=== PATIENT | female | born 1940 | race Caucasian/White ===

== ENCOUNTER 2020-08-14 10:32 | Outpatient (CLI) | payer MEDICARE, SELFPAY ==
--- NOTE | ~2020-08-14 | XR_ITS ---
XR abdomen/kub 1V 08/14/2020 10:59 Indication: Specified abdominal pain. Diarrhea. Procedure: KUB Comparison: No prior studies Findings: Bowel gas pattern is nonobstructive. There are pelvic phleboliths. Levoscoliosis. Lung base s unremarkable. No renal/ureteral stones are identified.. Impression: 1: No acute abdominal abnormality. Reviewed, dictated and finalized at location B. ITIONING COACH Impression: 1: No acute abdominal abnormality.
--- NOTE | ~2020-08-14 | XR_ITS ---
XR lumbar spine min 4V 08/14/2020 10:59 Indication: Low back pain Procedure: 5 views of the lumbar spine Comparison: No prior studies for comparison. Findings: Mild levoscoliosis centered at L1. Mild superior endplate compression deformity of L1, like ly chronic. There is disc narrowing at all lumbar levels. There is moderate multilevel facet hypertro phy. No acute fracture or traumatic malalignment. No evidence for spondylolisthesis. Impression: 1: Moderate lumbar spondylosis with levoscoliosis. 2: Mild superior endplate compression deformity of L1, likely chronic. Reviewed, dictated and finalized at location B. E OPERATOR Impression: 1: Moderate lumbar spondylosis with levoscoliosis. 2: Mild superior endplate compression deformity of L1, likely chronic.
== END 2020-08-14 10:33 | disposition home or self-care (01) ==
PROVIDERS: PCP Family Medicine; Visit Provider Family Medicine
DX: R10.9 Unspecified abdominal pain (principal); C50.919 Malignant neoplasm of unspecified site of unspecified female breast; M41.9 Scoliosis, unspecified; M54.5 Low back pain; R19.7 Diarrhea, unspecified
CPT/HCPCS: 72110; 74018

== ENCOUNTER 2020-12-18 08:56 | Emergency (ER) | payer MEDICARE, SELFPAY ==
--- NOTE | ~2020-12-18 | CT_ITS ---
EXAMINATION: CTA chest PE abdomen pel DATE: 12/18/2020 10:19 INDICATION: Generalized chest pain. Right flank pain. Liver biopsy 3 days ago. TECHNIQUE: Computed tomography angiography (CTA) of the chest was performed with 100 mL Omnipaque-350 intravenous contrast timed to evaluate the pulmonary arteries. Coronal maximum intensity projection 3D-reconstructions were created by the technologist. Computed tomography (CT) of the abdomen and pelv is was performed with intravenous contrast. Automated exposure control and iterative reconstruction t echnique were employed. The dose-length product was 327.93 mGy-cm. COMPARISON: CT abdomen and pelvis 10/28/2011, lumbar spine radiographs 08/14/2020 FINDINGS: CTA chest: There is mild scarring at the lung apices. There is minimal atelectasis bilaterally. No pl eural effusion. Cardiomegaly is noted. There are coronary artery calcifications. No pericardial effus ion. There is no pulmonary embolus. There are no pathologically enlarged lymph nodes. There are numer ous scattered mixed sclerotic and lytic lesions of bone. There are multiple healing pathologic right rib fractures. There are mild pathologic compression fractures of T7 and T12 of uncertain age. CT abdomen and pelvis: There are greater than 20 scattered masses in the liver measuring up to 2.9 x 2.2 cm. The gallbladder, spleen, pancreas, adrenal glands, and kidneys are normal. There is a left in guinal hernia containing fat. The appendix is not visualized. There are no dilated loops of bowel. Th ere are no pathologically enlarged lymph nodes. There are widespread mixed lytic and sclerotic lesion s of bone. There is a burst fracture of L1 with 2/5 loss of height and retropulsion of bone 4 mm into central spinal canal, worsened from 08/14/2020. IMPRESSION: 1. Liver masses and bone lesions, consistent with metastatic disease, most likely metastatic breast c ancer. Correlate with outside biopsy results. 2. No visualized complication from the recent liver biopsy. 3. No pulmonary embolus. Reviewed, dictated and finalized at location A. IMPRESSION: 1. Liver masses and bone lesions, consistent with metastatic disease, most like ly metastatic breast cancer. Correlate with outside biopsy results. 2. No visualized complication from the recent liver biopsy. 3. No pulmonary embolus.
--- NOTE | ~2020-12-18 | XR_ITS ---
EXAMINATION: XR chest 2V EXAM DATE: 12/18/2020 09:54 INDICATION: Right lower rib pain at liver biopsy site. TECHNIQUE: Frontal and lateral projections of the chest obtained and reviewed. Comparison is made to prior examination from 07/13/2018. FINDINGS: Moderate chronic hyperinflation. There is cardiomegaly. No confluent consolidation, pneumo thorax or pleural effusion suspected. Mild to moderate thoracolumbar levoscoliosis. Bones appear oste openic. There is no significant interval change. IMPRESSION: 1. No acute cardiac pulmonary findings. 2. Cardiomegaly. 3. Hyperinflation. Reviewed, dictated and finalized at location A.
[2020-12-18 09:15] VITALS: BP 108/59; PULSE 100; RESP 17; TEMP 37.1; O2SAT 98
--- NOTE | 2020-12-18 09:27 | ED.GENADULT ---
HPI - General Adult General Chief complaint: Abdominal Pain Stated complaint: flank pain following liver biopsy Time Seen by Provider: 12/18/20 09:03 Source: patient Mode of arrival: ambulatory Limitations: no limitations History of Present Illness HPI narrative: Patient is an 80 year old female with history of breast cancer who presents for evaluation of right flank pain s/p liver biopsy. She had a liver biopsy performed on Monday at [facility] . She states she developed right flank pain yesterday. She has pain with movement, and she denies pain now. She denies shortness of breath, nausea, vomiting or fever. She denies urinary complaints. She has been found to have mets in her liver and bone so they are evaluated the source. Related Data Allergies Allergy/AdvReac Type Severity Reaction Status Date / Time No Known Allergies Allergy Verified 12/03/20 13:27 Review of Systems Review of Systems: All systems reviewed & are unremarkable except as noted in HPI and below PMFSH Past Medical History Medical History Breast CA Essential tremor Osteopenia after menopause Supraventricular arrhythmia Use of anastrozole (Arimidex) Surgical History Surgical History History of mastectomy, total L Family History Family History Mother Hypertension Father Malignant neoplasm of prostate Sibling Family history of malignant neoplasm of thyroid Social History Social History (Updated 12/03/20 @ 13:30 by Kiersten Hightower CMA) Social History: Smoking status: Never smoker Second hand tobacco smoke exposure: No Alcohol intake: current Substance use: never Substance use type: does not use Gender identity (if verbalized by the patient): Female Exam Const: General: alert Nutritional Appearance: thin Orientation/consciousness: patient oriented x3 Resp: Effort & Inspection: normal respiratory effort and no retractions Auscultation: clear to auscultation bilaterally Cardio: Rate: regular rate Rhythm: regular rhythm Heart sounds: no murmurs GI: GI Palp: Yes Soft to palpation, No Tenderness to palpation present (GI), No Guarding due to palpation present (GI) and No Rigid due to palpation Auscultation: normal bowel sounds Skin: Other: right flank with small bandage, no swelling, no erythema, there is small about of bruising at puncture site. Neuro: General: patient oriented x3 and moves all extremities Course Reevaluation(s) Reevaluation #1: I discussed with patient and her son that labs were unremarkable other than anemia. No sign of complications of the biopsy. She does have multiple rib fractures from her cancer. They are aware. They have a follow up appointment in 1 week. Date: 12/18/20 Time: 11:43 Vital Signs Vital signs: Vital Signs Temperature 98.7 F 12/18/20 09:15 Pulse Rate 100 12/18/20 09:15 Respiratory Rate 17 12/18/20 09:15 Blood Pressure 108/59 L 12/18/20 09:15 Pulse Oximetry 98 12/18/20 09:15 Temperature 98.7 F 12/18/20 09:15 Pulse Rate 81 12/18/20 12:30 Respiratory Rate 16 12/18/20 12:30 Blood Pressure 134/65 12/18/20 12:30 Pulse Oximetry 100 12/18/20 12:30 Medical Decision Making Vital Signs Vital Signs: Vital Signs Temperature 98.7 F 12/18/20 09:15 Pulse Rate 100 12/18/20 09:15 Respiratory Rate 17 12/18/20 09:15 Blood Pressure 108/59 L 12/18/20 09:15 Pulse Oximetry 98 12/18/20 09:15 Temperature 98.7 F 12/18/20 09:15 Pulse Rate 81 12/18/20 12:30 Respiratory Rate 16 12/18/20 12:30 Blood Pressure 134/65 12/18/20 12:30 Pulse Oximetry 100 12/18/20 12:30 Lab Data Lab results reviewed: Yes I reviewed the patient's lab results. Result diagrams: 12/18/20 09:28 12/18/20 09:28 Labs: Lab
[2020-12-18 09:35] LABS: Basophils Percent Auto 0.8 % (0.2-1.2); Eosinophils Absolute Auto 0.4 K/mm3 (0-0.3); Hematocrit 31.6 % (37.0-47.0); Immature Granulocyte Absolute 0.04 K/mm3 (0.00-0.031); Immature Granulocyte Percent A 0.8 % (0-0.5); Lymphocytes Percent Auto 10.4 % (18.3-44.2); Mean Corpuscular HGB Conc 31.6 g/dl (32-36); Mean Corpuscular Hemoglobin 27.5 pg (26-34); Mean Corpuscular Volume 87.1 fl (80-100); Mean Platelet Volume 9.3 fl (7.4-10.4); Monocytes Absolute Auto 0.4 K/mm3 (0.1-0.6); Monocytes Percent Auto 9.2 % (2.6-8.5); Neutrophils Absolute Auto 3.3 K/mm3 (1.3-6.7); Neutrophils Percent Auto 69.8 % (45.5-73.1); Platelet Count Result 324 k/mm3 (150-375); Red Blood Count 3.63 M/mm3 (4.2-5.4); Red Cell Distribution Width 14.4 % (11.5-14.5); White Blood Count 4.8 K/mm3 (4.5-10.0)
--- NOTE | 2020-12-18 09:45 | PC.NURSE ---
Pt unable to void, agreeable to a straight cath for urine sample. Order placed. Pt to XRAY at this time.
[2020-12-18 09:52] LABS: Alanine Aminotransferase 13 U/L (4-35); Albumin Level 3.7 g/dL (3.5-5.1); Alkaline Phosphatase 124 U/L (38-126); Anion Gap 5 mmol/L (8-16); Aspartate Amino Transferase 28 U/L (14-36); Bilirubin,Total 0.4 mg/dL (0.2-1.3); Blood Urea Nitrogen 14 mg/dL (7-17); Calcium 8.9 mg/dL (8.4-10.2); Carbon Dioxide 26 mmol/L (22-30); Chloride 105 mmol/L (98-107); Estimated CRCL calculation 60 ml/min; Estimated Glomerular Filt Rate > 60; Glucose 119 mg/dL (65-105); Lipase 80 U/L (23-300); Potassium 4.1 mmol/L (3.4-5.0); Sodium 136 mmol/L (137-145)
[2020-12-18 09:58] LABS: INR 0.9; Prothrombin Time 12.8 Seconds (11.1-14.7)
[2020-12-18 09:59] LABS: Partial Thromboplastin Time 35.4 SECONDS (22.3-36.8)
[2020-12-18 10:41] VITALS: BP 147/59; PULSE 94; RESP 18; O2SAT 100
[2020-12-18 11:20] LABS: Add Urine Microscopic? NO; Appearance Urine Clear (Clear); Bilirubin Urine Negative (Negative); Blood Urine Negative (Negative); Color Urine Straw (Yellow); Glucose Urine UA Negative (Negative); Ketones Urine Negative (Negative); Leukocyte Esterase Ur Negative LEU/UL (Negative); Nitrate Urine Negative (Negative); Protein Urine Negative (Negative); Urobilinogen Urine Negative mg/dL (<2.0)
[2020-12-18 12:30] VITALS: BP 134/65; PULSE 81; RESP 16; O2SAT 100
== END 2020-12-18 12:32 | disposition home or self-care (01) ==
PROVIDERS: Emergency Provider General Practice; PCP Family Medicine
DX: R10.9 Unspecified abdominal pain (principal); C79.51 Secondary malignant neoplasm of bone; C78.7 Secondary malignant neoplasm of liver and intrahepatic bile duct; Z85.3 Personal history of malignant neoplasm of breast; M84.58XD Pathological fracture in neoplastic disease, other specified site, subsequent encounter for fracture with routine healing; M85.80 Other specified disorders of bone density and structure, unspecified site; Z90.12 Acquired absence of left breast and nipple; I51.7 Cardiomegaly
CPT/HCPCS: 36415; 51701; 71046; 71275; 74177; 80053; 81003; 83690; 85025; 85610; 85730; 99284; Q9967

== ENCOUNTER 2022-02-04 12:19 | Outpatient (CLI) | payer MEDICARE, SELFPAY ==
[2022-02-04 15:29] LABS: Color Urine Yellow (Yellow)
[2022-02-04 15:30] LABS: Appearance Urine Clear (Clear)
[2022-02-04 15:31] LABS: Add Urine Microscopic? YES; Bilirubin Urine Negative (Negative); Blood Urine Negative (Negative); Glucose Urine UA Negative (Negative); Ketones Urine Negative (Negative); Leukocyte Esterase Ur Trace LEU/UL (Negative); Nitrate Urine Negative (Negative); Protein Urine Negative (Negative); Urobilinogen Urine 0.2 mg/dL (<2.0)
[2022-02-04 15:33] LABS: Bacteria Urine Trace /hpf; Mucus Urine Rare /lpf; RBC Urine 0-2 /hpf (0-2); Squamous Epithelial Cell Urine Rare /hpf (Few)
== END 2022-02-04 12:20 | disposition home or self-care (01) ==
LOC: ANHLAB 12:21
PROVIDERS: PCP Family Medicine; Visit Provider Nurse Practitioner Gerontology
DX: R30.0 Dysuria (principal)
CPT/HCPCS: 81001; 87086

== ENCOUNTER 2022-02-22 11:16 | Emergency (ER) | payer MEDICARE, SELFPAY ==
--- NOTE | ~2022-02-22 | CT_ITS ---
EXAMINATION: CT abdomen pelvis wo con DATE: 02/22/2022 12:48 INDICATION: Right upper quadrant abdominal pain TECHNIQUE: Computed tomography (CT) of the abdomen and pelvis was performed without intravenous contr ast. Automated exposure control and iterative reconstruction technique were employed. The dose-length product was 188.97 mGy-cm. COMPARISON: None FINDINGS: Mild bronchiectatic changes in mild atelectasis at the bilateral lower lobes. Cardiomegaly. No perica rdial or pleural effusion. Multiple hypodense masses scattered throughout the liver consistent with m etastatic disease. This appears to have progressed since the prior study although more thousand and d irect quantitative comparison is difficult in that the current study is performed without contrast as opposed to the prior postcontrast study and which the masses are significantly more conspicuous with clearly defined margins. Gallbladder, spleen, pancreas, left kidney and bilateral adrenal glands are normal. Right kidney is somewhat horizontally oriented and more caudally positioned than typical but appears otherwise normal. Bladder, uterus and bilateral adnexa are unremarkable. Bowels are unremark able with no obstruction. No free intraperitoneal gas or fluid. No pathologically enlarged abdominal or pelvic lymphadenopathy. There is been some interval progression in widespread lytic and sclerotic be bone disease throughout the visualized ribs, spine and pelvis. The progression is most clearly justen dent in the spine, particularly at L3. These statistically this L3. L3. Chronic the pathologic pain T 11 compression fracture and L1 burst fracture. IMPRESSION: 1. Interval progression of multiple hepatic masses and widespread lytic and sclerotic bone lesions co nsistent with progression of metastatic disease. 2. Cardiomegaly. 3. No acute intra-abdominal/pelvic process. Reviewed, dictated and finalized at location A. IMPRESSION: 1. Interval progression of multiple hepatic masses and widespread lytic and scl erotic bone lesions consistent with progression of metastatic disease. 2. Cardiomegaly. 3. No acute intra-abdominal/pelvic process.
[2022-02-22 11:52] VITALS: BP 107/86; PULSE 105; RESP 16; TEMP 37.5; O2SAT 98
[2022-02-22 12:08] VITALS: BP 97/54; PULSE 94; RESP 20; TEMP 37.6; O2SAT 100
--- NOTE | 2022-02-22 12:08 | PC.NURSE ---
pt unable to void at the moment.
--- NOTE | 2022-02-22 12:20 | ED.ABDPAIN ---
HPI - Abdominal Pain General Chief Complaint: Abdominal Pain Stated Complaint: ruq pain Time Seen by Provider: 02/22/22 12:03 History of Present Illness HPI narrative: Pt presents with pain in her RUQ since yesterday evening. Pt has liver CA and is concerned that may be the issue. Pt denies vomiting or fever or urinary symptoms. Pt missec chemo today to get evaluated in ER. Related Data Allergies Allergy/AdvReac Type Severity Reaction Status Date / Time No Known Allergies Allergy Verified 02/02/22 14:29 Review of Systems Review of Systems: All systems reviewed & are unremarkable except as noted in HPI and below PMFSH Past Medical History Medical History Breast CA Essential tremor Osteopenia after menopause Supraventricular arrhythmia Use of anastrozole (Arimidex) Surgical History Surgical History History of mastectomy, total L Family History Family History Mother Hypertension Father Malignant neoplasm of prostate Sibling Family history of malignant neoplasm of thyroid Social History Social History (Updated 02/02/22 @ 14:30 by Shirley Hess) Social History: Smoking status: Never smoker Second hand tobacco smoke exposure: No Alcohol intake: current Alcohol use details: ocassionally Substance use: never Substance use type: does not use Gender identity (if verbalized by the patient): Female Sexual Orientation (if Verbalized by the Patient): Straight or Heterosexual Exam Const: General: healthy appearing Nutritional Appearance: well nourished Orientation/consciousness: patient oriented x3 Limitations: no limitations Resp: Effort & Inspection: normal respiratory effort Auscultation: clear to auscultation bilaterally Cardio: Rate: regular rate Rhythm: regular rhythm GI: GI Palp: Yes Soft to palpation and Yes Tenderness to palpation present (GI) (edge of liver in RUQ mild) Auscultation: normal bowel sounds Skin: General skin exam: normal color Rashes: no rashes Wounds: no wounds Neuro: General: patient oriented x3 and no focal motor deficits Speech: normal speech Extrem: General: normal to inspection and no clubbing, cyanosis or edema Psych: Mental Status: mental status grossly normal Affect: normal affect Attitude: cooperative Course Vital Signs Vital signs: Vital Signs Temperature 99.5 F 02/22/22 11:52 Pulse Rate 105 H 02/22/22 11:52 Respiratory Rate 16 02/22/22 11:52 Blood Pressure 107/86 02/22/22 11:52 Pulse Oximetry 98 02/22/22 11:52 Oxygen Delivery Room Air 02/22/22 11:52 Temperature 99.6 F 02/22/22 12:08 Pulse Rate 94 02/22/22 12:08 Respiratory Rate 20 02/22/22 12:08 Blood Pressure 97/54 L 02/22/22 12:08 Pulse Oximetry 100 02/22/22 12:08 Oxygen Delivery Room Air 02/22/22 12:08 MDM - Abdominal Pain Lab Data Result diagrams: 02/22/22 13:25 02/22/22 13:25 Labs: Lab Results 02/22/22 02/22/22 Range/Units 13:25 13:25 WBC 8.2 (4.5-10.0) K/mm3 RBC 3.72 L (4.2-5.4) M/mm3 Hgb 10.2 L (12.0-15.0) g/dL Hct 32.0 L (37.0-47.0) % MCV 86.0 (80-100) fl MCH 27.4 (26-34) pg MCHC 31.9 L (32-36) g/dl RDW 15.2 H (11.5-14.5) % Plt Count 218 (150-375) k/mm3 MPV 9.6 (7.4-10.4) fl Immature Gran % (Auto) 0.7 H (0-0.5) % Neut % (Auto) 75.9 H (45.5-73.1) % Lymph % (Auto) 7.1 L (18.3-44.2) % [place] % (Auto) 16.1 H (2.6-8.5) % Eos % (Auto) 0.0 (0-4.4) % Baso % (Auto) 0.2 (0.2-1.2) % Lymph # (Auto) 0.58 L (0.9-3.2) K/mm3 [place] # (Auto) 1.3 H (0.1-0.6) K/mm3 Eos # (Auto) 0.0 (0-0.3) K/mm3 Baso # (Auto) 0.0 (0.0-0.1) K/mm3 Abs Immat Gran (auto) 0.06 H (0.00-0.031) K/mm3 Absolute Neuts (auto) 6.2 (1.3-6.7) K/mm3 Absolute Nucleated RBC 0.0 (0.0-0.012)
[2022-02-22 13:33] LABS: Basophils Percent Auto 0.2 % (0.2-1.2); Hemoglobin 10.2 g/dL (12.0-15.0); Immature Granulocyte Absolute 0.06 K/mm3 (0.00-0.031); Immature Granulocyte Percent A 0.7 % (0-0.5); Lymphocytes Absolute Auto 0.58 K/mm3 (0.9-3.2); Lymphocytes Percent Auto 7.1 % (18.3-44.2); Mean Corpuscular HGB Conc 31.9 g/dl (32-36); Mean Corpuscular Hemoglobin 27.4 pg (26-34); Mean Platelet Volume 9.6 fl (7.4-10.4); Monocytes Absolute Auto 1.3 K/mm3 (0.1-0.6); Monocytes Percent Auto 16.1 % (2.6-8.5); Neutrophils Absolute Auto 6.2 K/mm3 (1.3-6.7); Neutrophils Percent Auto 75.9 % (45.5-73.1); Platelet Count Result 218 k/mm3 (150-375); Red Blood Count 3.72 M/mm3 (4.2-5.4); Red Cell Distribution Width 15.2 % (11.5-14.5); White Blood Count 8.2 K/mm3 (4.5-10.0)
--- NOTE | 2022-02-22 13:40 | PC.NURSE ---
PATIENT STATES UNABLE TO VOID AND REFUSES STRAIGHT CATH AT THIS TIME
[2022-02-22] MEDS: SODIUM CHLORIDE 0.9% IV 1,000 ML 999 ML IV CONT (13:41)
[2022-02-22 13:54] LABS: Alanine Aminotransferase 35 U/L (6-35); Albumin Level 3.6 g/dL (3.5-5.1); Alkaline Phosphatase 414 U/L (38-126); Anion Gap 4 mmol/L (8-16); Aspartate Amino Transferase 54 U/L (14-36); Blood Urea Nitrogen 15 mg/dL (7-17); Calcium 8.3 mg/dL (8.4-10.2); Carbon Dioxide 25 mmol/L (22-30); Chloride 100 mmol/L (98-107); Estimated CRCL calculation 47 ml/min; Estimated Glomerular Filt Rate > 60; Glucose 109 mg/dL (65-110); Lipase 74 U/L (23-300); Potassium 3.5 mmol/L (3.4-5.0); Sodium 129 mmol/L (137-145)
== END 2022-02-22 15:18 | disposition home or self-care (01) ==
PROVIDERS: Emergency Medicine; Emergency Provider Emergency Medicine; PCP Family Medicine
DX: R10.11 Right upper quadrant pain (principal); C79.9 Secondary malignant neoplasm of unspecified site; M85.80 Other specified disorders of bone density and structure, unspecified site; Z85.3 Personal history of malignant neoplasm of breast; Z90.12 Acquired absence of left breast and nipple; I51.7 Cardiomegaly
CPT/HCPCS: 36415; 74176; 80053; 83690; 85025; 96360; 99284; J7030